=== PATIENT | female | born 1985 | race Caucasian/White ===

== ENCOUNTER 2022-02-18 09:27 | Inpatient (IN) | payer OTHER ==
[~2022-02-18] VITALS: Ht 172.7 cm; Wt 88.0 kg
[~2022-02-18 09:27] MED LIST: PRENATAL TABLET1 TAB PO
== END 2022-02-27 14:03 | disposition home or self-care (01) | DRG 807 ==
LOC: OB/GYN 09:27 → LDR 02-25 06:29 → OB/GYN 02-25 09:29
PROVIDERS: ADMIT Obstetrics & Gynecology; ATTEND Obstetrics & Gynecology
PROC: 10E0XZZ Delivery of Products of Conception, External Approach (ICD-10-PCS; principal; 2022-02-25)
PROC: 0HQ9XZZ Repair Perineum Skin, External Approach (ICD-10-PCS; 2022-02-25)
PROC: 4A1HXCZ Monitoring of Products of Conception, Cardiac Rate, External Approach (ICD-10-PCS; 2022-02-25)
DX: O70.0 First degree perineal laceration during delivery (principal); O99.820 Streptococcus B carrier state complicating pregnancy; Z3A.38 38 weeks gestation of pregnancy; Z37.0 Single live birth; Z20.822 Contact with and (suspected) exposure to COVID-19